=== PATIENT | female | born 1985 | race Caucasian/White ===

== ENCOUNTER 2021-07-20 12:03 | Emergency (ER) | payer OTHER, SELFPAY ==
[2021-07-20 12:16] VITALS: BP 118/73; PULSE 84; RESP 18; TEMP 36.9; O2SAT 100
--- NOTE | 2021-07-20 12:19 | ED.URI ---
HPI - URI/Sore Throat General Chief Complaint: Upper Respiratory Infection Stated Complaint: nasal pressure,jaw sensitivity Time Seen by Provider: 07/20/21 12:31 Source: patient and RN notes reviewed Mode of arrival: ambulatory Limitations: no limitations History of Present Illness HPI Narrative: 36-year-old female presents concern for 1 week history of sinus pain and pressure, worse on the left, left tooth pain and pressure. Reports she is taken Sudafed and Zyrtec without relief. Reports symptoms started to feel a bit better and then worsened. MD elicited complaint: cough and sore throat Related Data Home Medications Medication Instructions Recorded Confirmed levonorgestrel [Mirena] 1 device INTRAUTERINE ONCE 07/20/21 07/20/21 Allergies Allergy/AdvReac Type Severity Reaction Status Date / Time No Known Drug Allergies Allergy Verified 07/20/21 12:28 Review of Systems Review of Systems: CONSTITUTIONAL: Denies malaise, chills, sweats, or fever. EYES: Denies visual changes, redness, or discharge. ENT: Reports rhinorrhea, congestion, sinus pain, otalgia, left ear pressure, left jaw and tooth pain denies sore throat. CARDIOVASCULAR: Denies chest pain, palpitations, or edema. RESPIRATORY: Denies cough. Denies dyspnea. GASTROINTESTINAL: Denies abdominal pain, nausea, vomiting, diarrhea SKIN: Denies rash or itching. MUSCULOSKELETAL: Denies myalgia. NEUROLOGIC: Denies headache. All systems reviewed & are unremarkable except as noted in HPI and below PMFSH Comments At time of signature, agree with nursing past medical, surgical, social and family history. There is no relevant family history pertinent to the presenting complaint Exam Narrative: GENERAL: Well-appearing, well-nourished, and in no acute distress. HEAD: Normocephalic EYES: PERRLA, conjunctivae clear ENT: Nares clear, turbinates edematous and erythematous, clear discharge. Mucous membranes moist. TM pearly maria with dull light reflex bilaterally; no tragal tenderness. Oropharynx not erythematous without lesions. Tonsils not enlarged and without exudate, no drooling, no hoarseness, no trismus, uvula midline. NECK: Supple. No lymphadenopathy CHEST: Clear to auscultation, breath sounds equal. No wheezing, rhonchi, rales, or stridor. No respiratory distress, speaks in full sentences. HEART: Regular rate and rhythm. No murmur heard. SKIN: Warm, dry, no rash. NEURO: Alert and oriented x3. PSYCH: Normal mood and affect Course Course Emergency Course: Patient is aware of diagnosis, understands and agrees to treatment plan. Anticipatory guidance given. Patient agrees to follow-up as directed and is aware of reasons to seek care at the emergency department. Portions of this record may have been created with voice recognition software Level of Care: Express Care Visit Vital Signs Vital signs: Vital Signs Temperature 98.5 F 07/20/21 12:16 Pulse Rate 84 07/20/21 12:16 Respiratory Rate 18 07/20/21 12:16 Blood Pressure 118/73 07/20/21 12:16 Pulse Oximetry 100 07/20/21 12:16 Temperature 98.5 F 07/20/21 12:16 Pulse Rate 84 07/20/21 12:16 Respiratory Rate 18 07/20/21 12:16 Blood Pressure 118/73 07/20/21 12:16 Pulse Oximetry 100 07/20/21 12:16 Reviewed. MDM - URI/Sore Throat MDM Narrative Medical decision making narrative: Differential diagnosis considered: Rosas virus, strep pharyngitis, allergic rhinitis, upper respiratory tract infection, sinusitis, rhinosinusitis, nasopharyngitis. viral pharyngitis, otitis media, otitis externa, pneumonia, bronchitis, viral cough syndrome, viral syndrome, and influenza. Exam findings show no acute concerns or changes; patient is non-toxic appearing and is in no distress. Patient is appropriate for outpatient treatment and follow-up. Lab Data Attestation: I reviewed the patient's lab results. Critical Care Time Critical Care Time Critical Care Time: No Discharge Plan Discharge Clinical Impre
== END 2021-07-20 12:43 | disposition home or self-care (01) ==
PROVIDERS: Emergency Provider Nurse Practitioner
DX: J01.90 Acute sinusitis, unspecified (principal)
CPT/HCPCS: 99213; G0463

== ENCOUNTER 2023-02-22 11:21 | Emergency (ER) | payer BC, SELFPAY ==
--- NOTE | 2023-02-22 11:22 | ED.URI ---
HPI - URI/Sore Throat General Chief Complaint: Upper Respiratory Infection Stated Complaint: Sore Throat Time Seen by Provider: 02/22/23 11:22 Source: patient Mode of arrival: ambulatory Limitations: no limitations History of Present Illness HPI Narrative: Hayder is a 38-year-old female patient presenting to the clinic today with complaints of a sore throat since last night. Does reports some nasal congestion as well. She reports no fever or chills. No known exposure to anyone with covid, flu, or strep. Related Data Home Medications Medication Instructions Recorded Confirmed levonorgestrel 21 mcg/24 hours (8 1 device intrauterine ONCE 07/20/21 02/22/23 yrs) 52 mg intrauterine device (Mirena) Allergies Allergy/AdvReac Type Severity Reaction Status Date / Time No Known Drug Allergies Allergy Unknown Verified 02/22/23 11:33 Review of Systems Review of Systems: Pertinent positives per HPI. Patient denies any fever, chills, rash, headache, visual changes, dizziness, cough, shortness of breath, chest pain, palpitations, nausea, vomiting, diarrhea, constipation, abdominal pain, or any urinary issues. PMFSH Past Medical History Medical History Acute maxillary sinusitis Encounter to establish care Presence of IUD Sinus congestion Vapes nicotine containing substance Family History Family History Grandparent Heart disease Diabetes mellitus Social History Social History Smoking status: Former smoker Tobacco type: e-cigarettes/vaping Alcohol intake: current Alcohol use details: 2-3 per month Substance use: never Substance use type: does not use Lack of Transportation: No Lack of Food: Never True Current Housing: I Have Housing Concerned About Future Housing: No Difficulty Paying Gas/Electric Bills: No Difficulty Paying for Meds: No Currently Unemployed: No Education: Bachelor's Degree Difficulty w/ Childcare or Family Care: No Comments At the time of my signature, I reviewed and agree with the nursing past medical, surgical, social, and family history. There is no relevant family history pertinent to the patient complaint. Exam Narrative: General: Well-developed, well nourished, in no apparent distress Head: Normocephalic, atraumatic Eyes: Pupils equally round and reactive to light bilaterally, EOM intact, sclera and conjunctive clear, no discharge, lids normal Ears: TMs intact and congested, ear canals clear, no drainage, grossly hearing normal. Nose: Nares patent, clear nasal discharge, no inflammation, no sinus tenderness. Mouth: Oropharynx red without lesions or masses, good dentition, MMM. Neck: Supple, trachea midline, no enlargement of anterior or posterior cervical nodes, no thyroid masses or goiter palpable. Cardio: Regular rate and rhythm, s1 and s2 normal, no murmur appreciated. Resp: Clear to auscultation bilaterally anteriorly and posteriorly, no rhonchi, rales, wheezing or rubs Course Course Emergency Course: Portions of this record may have been created with voice recognition software. Level of Care: Express Care Visit Vital Signs Vital signs: Vital Signs Temperature 36.6 C 02/22/23 11:28 Pulse Rate 61 02/22/23 11:28 Respiratory Rate 18 02/22/23 11:28 Blood Pressure 107/62 02/22/23 11:28 Pulse Oximetry 99 02/22/23 11:28 Oxygen Delivery Room Air 02/22/23 11:28 Temperature 36.6 C 02/22/23 11:28 Pulse Rate 61 02/22/23 11:28 Respiratory Rate 18 02/22/23 11:28 Blood Pressure 107/62 02/22/23 11:28 Pulse Oximetry 99 02/22/23 11:28 Oxygen Delivery Room Air 02/22/23 11:28 Vital signs reviewed MDM - URI/Sore Throat MDM Narrative Medical decision making narrative: At the time of visit patient is resting on the exam table. Strep screen was obtained and negative in the clin
[2023-02-22 11:28] VITALS: BP 107/62; PULSE 61; RESP 18; TEMP 36.6; O2SAT 99
== END 2023-02-22 11:45 | disposition home or self-care (01) ==
PROVIDERS: Emergency Provider Nurse Practitioner Family; PCP Nurse Practitioner Family
DX: B34.9 Viral infection, unspecified (principal); J06.9 Acute upper respiratory infection, unspecified; F17.290 Nicotine dependence, other tobacco product, uncomplicated
CPT/HCPCS: 87081; 87880; 99213; G0463

== ENCOUNTER 2023-11-17 11:02 | Outpatient (RCR) | payer BC, SELFPAY ==
[2023-11-19] MEDS: RHO(D) IMMUNE GLOBULIN 300 MCG/2 ML SYRINGE IM (13:02)
== END 2024-02-15 23:59 | disposition home or self-care (01) ==
LOC: ANHLAB 11:02
PROVIDERS: PCP Nurse Practitioner Family; Visit Provider Obstetrics & Gynecology
DX: Z29.13 Encounter for prophylactic Rho(D) immune globulin (principal); O36.0190 Maternal care for anti-D [Rh] antibodies, unspecified trimester, not applicable or unspecified; Z3A.00 Weeks of gestation of pregnancy not specified
CPT/HCPCS: 36415; 85461; 86850; 86900; 86901; 90384; 96372; J2790

== ENCOUNTER 2024-02-05 05:18 | Inpatient (IN) | payer BC, SELFPAY ==
[2024-02-05] VITALS (144 sets, daily range): BP systolic 85–142; BP diastolic 55–99; PULSE 73–157; RESP 18–20; TEMP 36.4–36.9; O2SAT 96–100; BMI 31.6
[2024-02-05] MEDS: OXYTOCIN 30 UNITS/NS 500 ML 30 UNITS/500 ML BAG IV CONT (06:49)
[2024-02-05] MEDS: LACTATED RINGERS 1,000 ML 125 ML IV CONT ×2 (06:49→09:31)
[2024-02-05] MEDS: AMPICILLIN 2 GM/NS 100 ML 2 GM/100 ML BAG IVPB (06:50)
[2024-02-05 07:13] LABS: Basophils Absolute Auto 0.1 K/mm3 (0.0-0.1); Basophils Percent Auto 0.5 % (0.2-1.2); Eosinophils Absolute Auto 0.1 K/mm3 (0-0.3); Eosinophils Percent Auto 0.7 % (0-4.4); Hematocrit 36.8 % (37.0-47.0); Hemoglobin 11.9 g/dL (12.0-15.0); Immature Granulocyte Percent A 0.9 % (0-0.5); Lymphocytes Absolute Auto 2.25 K/mm3 (0.9-3.2); Lymphocytes Percent Auto 19.5 % (18.3-44.2); Mean Corpuscular HGB Conc 32.3 g/dl (32-36); Mean Corpuscular Hemoglobin 27.7 pg (26-34); Mean Corpuscular Volume 85.8 fl (80-100); Monocytes Absolute Auto 0.9 K/mm3 (0.1-0.6); Monocytes Percent Auto 7.4 % (2.6-8.5); Neutrophils Absolute Auto 8.2 K/mm3 (1.3-6.7); Platelet Count Result 202 k/mm3 (150-375); Red Blood Count 4.29 M/mm3 (4.2-5.4); Red Cell Distribution Width 14.5 % (11.5-14.5); White Blood Count 11.5 K/mm3 (4.5-10.0)
--- NOTE | 2024-02-05 07:22 | WPDANESEPP ---
Anes - Eval Pre Procedure Procedure: labor epidural Date/Time: 02/05/24 07:22 Surgeon: farhat Preop Diagnosis: pain during labor Pre Op Diagnosis: IOL Patient Data Age: 39 Gender: F Height: 1.68 m Weight: 89 kg Last Vital Signs Pulse 102 H 02/05/24 07:01 BP 124/70 02/05/24 07:01 O2 Del Method Room Air 02/05/24 06:52 Allergies Allergy/AdvReac Type Severity Reaction Status Date / Time No Known Drug Allergies Allergy Unknown Verified 05/11/23 10:12 Home Medications Medication Instructions Recorded Confirmed Type prenat.vits,luz,jvw-tbtp-ruqdx 1 tablet 12/29/23 History Laboratory Tests 02/05/24 06:27 WBC Pending RBC Pending Hgb Pending Hct Pending MCV Pending MCH Pending MCHC Pending RDW Pending Plt Count Pending MPV Pending Immature Gran % (Auto) Pending Neut % (Auto) Pending Lymph % (Auto) Pending [place] % (Auto) Pending Eos % (Auto) Pending Baso % (Auto) Pending Lymph # (Auto) Pending [place] # (Auto) Pending Eos # (Auto) Pending Baso # (Auto) Pending Abs Immat Gran (auto) Pending Absolute Neuts (auto) Pending Absolute Nucleated RBC Pending Nucleated RBC % Pending RPR Pending HIV 1&2 Ab/P24 Ag 4thGn Pending Patient hx anesthesia problems: none Family hx anesthesia problems: none Results Review: All pre-operative results and documents have been reviewed as part of the pre-operative evaluation. [facility] Past Medical History Medical History Acute maxillary sinusitis B12 deficiency Encounter to establish care Presence of IUD Sinus congestion Vapes nicotine containing substance Family History Family History Grandparent Heart disease Diabetes mellitus Social History Social History (Updated 05/11/23 @ 10:15 by Fatmata Murillo) Smoking status: Never smoker Tobacco type: e-cigarettes/vaping Second hand tobacco smoke exposure: Yes Alcohol intake: current Alcohol use details: 2-3 per month Substance use: never Substance use type: does not use Do You Feel Safe in your Home?: Yes Lack of Transportation: No Lack of Food: Never True Current Housing: I Have Housing Concerned About Future Housing: No Difficulty Paying Gas/Electric Bills: No Difficulty Paying for Meds: No Currently Unemployed: No Education: Bachelor's Degree Difficulty w/ Childcare or Family Care: No Living arrangements: with family Occupation/Education: occupation Gender identity (if verbalized by the patient): Female Sexual Orientation (if Verbalized by the Patient): Straight or Heterosexual Spiritual care concerns: No Agree to blood products: Yes Exam Day of Procedure 02/05/24 07:22
[2024-02-05 08:05] LABS: HIV 1/2 Ab P24 Ag Result Negative (Negative)
--- NOTE | 2024-02-05 08:51 | WPDOBADMIT ---
Obstetrics - Admit Note Admission Note: record reviewed. Additions to the history and/or subsequent changes in the physical findings follow. 39 y/o at 41 weeks here for scheduled induction of labor. GBS pos. uncomplicated. AVSS NST reactive TOCO: contractions irregularly ABD soft, nontender, gravid, vertex EXT nontender Cervix 3/50/-2. AROM with clear fluid. Vertex. A: IUP at term here for scheduled induction of labor. GBS pos. P: Oxytocin. Ampicillin. Anticipate .
[2024-02-05 08:59] LABS: Rapid Plasma Reagin Non-Reactive (NonReactive)
[2024-02-05] MEDS: AMPICILLIN 1 GM/NS 50 ML 1 GM/50 ML BAG IVPB ×2 (10:57→15:28)
--- NOTE | 2024-02-05 12:05 | PM.OBPNLAB ---
Pain Control Date/time seen: 02/05/24 12:05 Comments: Comfortable with epidural. Pelvic Exam Dilation (cm): 4 Effacement (%): 50 station: -2 Contractions Monitor mode: External Contraction frequency: 3 Contraction pattern: Regular Status status: Category l Comments: IUPC placed Assessment and Plan Comments: Continue labor
--- NOTE | 2024-02-05 17:15 | PM.OBPRVD ---
OB - Vaginal Delivery Note Procedure Delivery date: 02/05/24 Events: Elective Induction of Labor Induction method: Per Pitocin Protocol Delivery augmentation: Rupture of Membranes and Pitocin Delivery monitor: External FHT, External Uterine and Internal Uterine Route of delivery: Episiotomy description: None Laceration Description: Perineal - 2nd Degree Delivery repair: vicryl (3-0) Specimen: Yes (cord blood) Quantitative Blood Loss (ml): 420 Anesthesia type: Epidural Disposition: PACU Complications: None Narrative: 39 y/o at 41 weeks gestation who presented to the hospital for induction of labor. Oxytocin was administered intravenously. She received ampicillin for GBS colonization. Amniotomy was performed with return of clear fluid. She received an epidural for pain control. Her labor progressed and her cervix dilated completely. She pushed with good effort and delivered the 's head to the perineum, followed by the body. The nose and mouth were bulb suctioned. After a delay, the cord was clamped and cut. The was handed off the field. Cord blood was collected. The placenta delivered spontaneously and was grossly normal in appearance. The usual 3 vessel cord was noted. A second degree midline perineal laceration was sustained. This was reapproximated using 3 0 Vicryl in the usual layered fashion. Excellent hemostasis resulted as did excellent reapproximation of the normal anatomy. Needle and instrument counts were correct. The patient was taken to recovery room in stable condition. The infant went to the nursery in stable condition. I was present and scrubbed for the entire delivery. Baby Date of : 02/05/24 Time of : 16:54 Gestational Age by Date: 41 gender: Female presentation: vertex position: Left Occiput Anterior Placenta delivery description: Spontaneous and Normal Configuration Cord Vessel Description: 3 Vessels, Nuchal Cord (x1) and Delayed Cord Clamping score one minute: 8 score five minutes: 9
--- NOTE | 2024-02-05 17:18 | PM.OBDSVD ---
DS: Admitting Diagnosis Discharge Date 02/06/24 Admitting Diagnosis IUP at 41 weeks GBS colonization DS: Discharge Diagnosis Discharge Diagnosis (1) (normal spontaneous vaginal delivery): Code(s): O80 - Encounter for full-term uncomplicated delivery Status: Acute (2) GBS (group B Streptococcus carrier), +RV culture, currently : Code(s): O99.820 - Streptococcus B carrier state complicating Status: Acute OB - DS: Summary OB Procedures : None OB Procedures Intrapartum: Spontaneous Vag Delivery and GBS prophylaxis OB Procedures: : None Peripartum Data Laceration Description: Perineal - 2nd Degree Episiotomy description: None Time Spent with Patient Time attestation: Total time spent providing and/or coordinating discharge services: DS: Data Data Completed and Pending Labs on day of discharge: Labs from last 24 hours 02/05/24 06:27 WBC 11.5 H RBC 4.29 Hgb 11.9 L Hct 36.8 L MCV 85.8 MCH 27.7 MCHC 32.3 RDW 14.5 Plt Count 202 MPV 13.0 H Immature Gran % (Auto) 0.9 H Neut % (Auto) 71.0 Lymph % (Auto) 19.5 [place] % (Auto) 7.4 Eos % (Auto) 0.7 Baso % (Auto) 0.5 Lymph # (Auto) 2.25 [place] # (Auto) 0.9 H Eos # (Auto) 0.1 Baso # (Auto) 0.1 Abs Immat Gran (auto) 0.10 H Absolute Neuts (auto) 8.2 H Absolute Nucleated RBC 0.000 Nucleated RBC % 0.0 RPR Non-reactive HIV 1&2 Ab/P24 Ag 4thGn Negative Blood Type O Negative Antibody Screen Negative Discharge Plan Discharge Attending physician on discharge: Jeremiah Chun Discharging Clinician: Jeremiah Chun Patient Disposition: Home, Self-Care Activity: pelvic rest Diet: regular Discharge Instructions: Call or return if temperature above 100.4? F, increased abdominal pain, increased vaginal bleeding or any new problems. Stand Alone Forms: General Discharge Information Follow-up/Referrals: Jeremiah Chun MD [Physician] - 6 Weeks Discharge Medications: New ibuprofen 600 mg tablet 600 mg PO Q6H PRN (Reason: cramps) Qty: 30 0RF ferrous sulfate 325 mg (65 mg iron) tablet 325 mg PO DAILY Qty: 30 0RF Continued #2 Tablet 1 tablet Date of admission: 02/05/24 05:18 Primary Care Provider: Paulette Roldan Admitting Provider: Jeremiah Chun Attending physician on admission: Jeremiah Chun Condition: Stable
[2024-02-05] MEDS: OXYTOCIN 30 UNITS/NS 500 ML 30 UNITS/500 ML BAG 125 UNITS IV CONT (17:24)
[2024-02-05] MEDS: ACETAMINOPHEN 325 MG TABLET 650 MG PO (18:37)
--- NOTE | 2024-02-05 19:50 | OBPPTRN ---
Patient transferred to post room #279 via wheelchair. Support person present. Oriented to unit, room, information board, rooming in, admission packet and security measures. Patient verbalizes understanding.
[2024-02-05] MEDS: IBUPROFEN 600 MG TABLET PO (20:20)
[2024-02-06] MEDS: ACETAMINOPHEN 325 MG TABLET 650 MG PO ×3 (00:23→13:45)
[2024-02-06] MEDS: IBUPROFEN 600 MG TABLET PO ×3 (03:41→16:04)
[2024-02-06 04:42] LABS: Hematocrit 30.6 % (37.0-47.0); Hemoglobin 9.7 g/dL (12.0-15.0)
[2024-02-06] MEDS: DOCUSATE SODIUM 100 MG CAPSULE PO ×2 (07:19→15:33)
[2024-02-06] MEDS: MULTIVIT/MIN/PREN/FOL AC/IRON TABLET 1 TAB PO (07:22)
[2024-02-06] MEDS: POLYSACCHARIDE IRON COMPLEX 150 MG CAPSULE PO ×2 (07:23→15:33)
[2024-02-06 07:35] VITALS: BP 126/88; PULSE 90; RESP 18; TEMP 36.4; O2SAT 100
--- NOTE | 2024-02-06 08:34 | PM.OBPNVD ---
OB - PN: Subj Subjective Date/time seen: 02/06/24 08:34 Narrative: Pain OK. Would like to go home. OB - PN: Obj Data Labs 02/06/24 03:32 Labs: Laboratory Results - last 24 hr 02/05/24 02/06/24 06:27 03:32 Hgb 9.7 L Hct 30.6 L RPR Non-reactive Blood Type O Negative Antibody Screen TNP Screen Negative Baby's Blood Type O pos Baby's SAVANNAH Positive Doses of RhIg Required 1 OB - PN A/P Plan day: 1 Comments: A: PPD#1, doing well. P: Home to f/u 6 weeks. Exam Psych: Other: AVSS ABD soft, nontender, fundus firm EXT nontender
--- NOTE | 2024-02-06 09:25 | PC.NURSE ---
Introductions were made, then consulted with patient to assess needs related to . Mother led the conversation with her?plans to feed?her infant and the?experience so far. Per mother baby did go to breast a few times yesterday and then last night did not seem satisfied after a feeding so she decided to supplement with formula bottle and then gave formula bottles only through the night into contact lens blocker and cutter. Mother thinks she may just want to only pump and bottle feed but is undecided. Encouraged understanding of the benefits of skin to skin (demonstrating unwrapping infant and placing upright on her chest), stimulating with massage touch, changing positions to encourage wakefulness, how to watch for early feeding cues, responsive feeding, feeding on demand (aiming for 8-12 times in 24 hours, about every 2-3 hours), milk production, building/maintaining a milk supply, duration of feeding, signs of adequate intake/output and how to record on the feeding sheet. Mother works well with her infant with encouragement and education. Reviewed positioning and ear, shoulder, hip alignment, supporting the breast to facilitate a deep latch, asymmetrical latch (off-center), leading with the chin with a big, open, wide gape and body close to mother. Mother has her own breast pump, encouraged her to call out for assistance in setting up pump and assessing flange size. RN expressed to mother the importance of nipple stimulation to protect her milk supply. Resources used for education were facilitated with the visual educational handouts and mom and baby guide. Inpatient/outpatient resources provided with feeding sheet, name written on the communication board, and the mom/baby guide. Parents voiced understanding of information, demonstrated learning and will call if there is a request for assistance. Reported to the Primary RN.
[2024-02-06 12:26] VITALS: BP 112/77; PULSE 92; RESP 16; TEMP 36.2; O2SAT 100
--- NOTE | 2024-02-06 13:54 | WPDANLDPN2 ---
Anes-Prog Note L&D Date/Time: 02/06/24 13:54 Comfortable throughout: labor and delivery Neuraxial method: epidural Epidural/Spinal procedure site: clean & non-tender Neuro status: Neuro function grossly intact. Cardiovascular status: normal Respiratory status: normal Airway patency: baseline Mental status: baseline Post-Op hydration status: normal Vital Signs: Last Vital Signs Temp 36.2 C L 02/06/24 12:26 Pulse 92 02/06/24 12:26 Resp 16 02/06/24 12:26 BP 112/77 02/06/24 12:26 Pulse Ox 100 02/06/24 12:26 O2 Del Method Room Air 02/06/24 12:12 Pain score (VAS): 1 I/O: Intake & Output 02/05/24 02/06/24 02/06/24 23:59 07:59 15:59 Output Total 655 Balance -655 Post-procedural complaints: none Patient feedback: Patient satisfied with anesthetic care.
[2024-02-06] MEDS: RHO(D) IMMUNE GLOBULIN 300 MCG/2 ML SYRINGE IM (15:30)
[2024-02-06 16:00] VITALS: BP 136/77; PULSE 83; RESP 16; TEMP 36.7; O2SAT 100
== END 2024-02-06 20:25 | disposition home or self-care (01) | DRG 807 ==
LOC: ANHLDR 17:19 → ANHOB2 20:20
PROVIDERS: Admitting Provider Obstetrics & Gynecology; PCP Nurse Practitioner Family; Visit Provider Obstetrics & Gynecology
DX: O99.824 Streptococcus B carrier state complicating childbirth (principal); Z37.0 Single live birth; Z3A.41 41 weeks gestation of pregnancy; O69.81X0 Labor and delivery complicated by cord around neck, without compression, not applicable or unspecified; O70.1 Second degree perineal laceration during delivery
CPT/HCPCS: 36415; 85014; 85018; 85025; 85461; 86592; 86703; 86850; 86900; 86901; 90384; A9270; G0432; J0290; J2590; J2790; J2795; J7120